=== PATIENT | female | born 1965 | race Caucasian/White ===

== ENCOUNTER 2019-07-13 00:24 | Outpatient (CLI) | payer OTHER, SELFPAY ==
--- NOTE | 2019-07-13 10:59 | DI.MAMMO_ITS ---
SYMPTOMS/DIAGNOSIS: SCREENING, Z12.31, PREVENTATIVE CARE, Z00.00 MAMMOGRAM: Mammograms were interpreted according to the usual protocol including computer analysis with CAD system, tomosynthesis and C view imaging. The breast tissue is homogeneously radiodense which limits the sensitivity of the study. There is no evidence of a dominant mass. There are no suspicious calcifications. SUMMARY: No evidence of malignancy. The patient has had previous mammograms and if the studies can be retrieved, an addendum report will follow. If the previous examinations can not be retrieved, then follow up surveillance of this patient with repeat mammograms in one year is recommended. Category I. Breast density Category C. MQSA ASSESSMENT OF FINDINGS: Negative. Category 1. Patient will receive a letter notifying them of these results. Bi-RADS category C. The breasts are heterogeneously dense, which may obscure small masses.
== END 2019-07-13 00:44 ==
PROVIDERS: PCP Family Medicine; Visit Provider Family Medicine
DX: Z00.00 Encounter for general adult medical examination without abnormal findings (principal); Z12.31 Encounter for screening mammogram for malignant neoplasm of breast
CPT/HCPCS: 77063; 77067

== ENCOUNTER 2019-08-23 09:01 | Day surgery (SDC) | payer OTHER, SELFPAY ==
--- NOTE | 2019-08-23 06:56 | W.COLOREPORT ---
Date of service: 08/23/19 Time of Service: 10:49 Colonoscopy Report Date of procedure: 08/23/19 Pre-op diagnosis general: Colon Cancer Screening Post-op diagnosis procedure note: other (Colorectal polyps and mild diverticulosis) Procedure: Colonoscopy with polypectomy Surgeon: Leidy Pollock Anesthesia proc note operative: other (General/ ASA 2/Karis rust, RAFAEL) Estimated blood loss (mL): 5 Pathology: other (Ascending polyp x1, Sigmoid polyp x2) Complications: None Disposition: same day Indications: Mrs. Slater is a pleasant 54 year old female who was seen in the office for a screening colonoscopy. She has no family history of colon cancer. Risks, benefits and complications have been reviewed. Complications include but are not limited to bleeding, pain, perforation, missed small lesion/polyp, sore throat, aspiration and adverse reaction to the medications. Questions were entertained and answered to their satisfaction and they wished to proceed. No guarantees were given or implied. Prep: Miralax/Dulcolax Procedure Start Time: 10:49 Procedure End Time: 11:29 Retraction Time: 26 minutes Findings: 3 small sessile polyps Mild diverticulosis Procedure Description: After informed consent was obtained the patient was taken to the procedure room and placed in a left decubitous position. Monitors were applied and a time out was done. The patients name, date of , procedure, allergies to medications and metal in their body was reviewed. The patient was then sedated. Once sedated and comfortable a rectal exam was done. External exam was normal. Internal exam revealed a normal sphincter tone and no palpable masses. The scope was then introduced and retro-flexed. No internal hemorrhoids, polyps or masses were identified on retroflexion. The scope was then advanced to the cecum without difficulty. The TI and appendiceal orifice were identified. The prep was adequate. The scope was then slowly retracted over 26 minutes back into the rectum. Polyps were removed with cold forceps in the transverse colon x1 and sigmoid colon x2. The scope was removed and the patient was woken up and taken back to Same day surgery in stable condition. The patient tolerated the procedure well and there were no immediate complications. Follow up: The patient should follow up in 3-5 years unless they develop changes in bowel habits or other new gastrointestinal complaints.
--- NOTE | 2019-08-23 07:01 | W.PM.DSUDISC ---
Discharge Plan Disposition Patient Disposition: HOME Condition: Good Discharge Details Reason For Visit: Colonoscopy Attending Provider: Leidy Pollock Primary Care Provider: Juan Arriola Home Meds and New Rx's Prescriptions: Continued cholecalciferol (vitamin D3) 1,000 UNIT tablet 1,000 unit PO DAILY RF: 0 sumatriptan succinate 50 mg tablet 50 mg PO PRN MDD 100mg Qty: 30 RF: 5 levothyroxine 50 mcg tablet 50 mcg PO DAILY Qty: 90 RF: 4 Discharge Instructions Instructions: Colonoscopy (DC), Diverticulosis (DC), Colorectal Polyps (DC) Additional Instructions: Findings: 3 small polyps Mild diverticulosis Follow up: 3-5 years Please call if you develop: fevers >101.5 Nausea or Vomiting Abdominal pain that is not transient DAY SURGERY UNIT POST ENDOSCOPY INSTRUCTIONS 1. Because there will be medication in your system for the next 24 hours, you may feel a little sleepy. Your coordination will be affected. Therefore: a. Do not drive or operate dangerous equipment for 24 hours. b. Do not drink alcohol beverages for 24 hours (not even beer). c. Plan to go home and rest for the day. 2. Generally there are no restrictions on your activity after a day or so has gone by, but you may feel a bit fatigued for a few days. 3 After you arrive home you may have a light meal and return to a normal diet as you can tolerate it without feeling sick to your stomach. 4. After surgery, you may feel pain or discomfort. This should be only transient, but if it persists please contact your doctor. 5. If there are any questions regarding the findings of your procedure, please feel free to contact your doctor. 6. If you are unable to contact your doctor with a problem, contact the hospital at [phone]. 7. Continue all your regular medications unless directed otherwise. I understand the above instructions and have no questions. Signature of Patient or Responsible Adult Escort Date/Time Name of Responsible Adult Escort Signature of Nurse Date/Time Activity:: Activity as Tolerated Diet:: High Fiber Diet Discharge Orders Discharge Orders: Discharge Order (Routine); Ordered 08/23/19 Ordered By: Leidy Pollock DS: Diagnosis Discharge Diagnosis (1) S/P colonoscopy: Status: Acute (2) Colorectal polyps: Status: Acute (3) Diverticulosis: Status: Acute
[2019-08-23 09:24] VITALS: PULSE 95; RESP 16; TEMP 36.9
[2019-08-23 09:31] VITALS: BP 110/70; PULSE 95; RESP 16; TEMP 36.9; O2SAT 97
[2019-08-23] MEDS: Lactated Ringers 1,000 ML 80 ML IV (09:45)
--- NOTE | 2019-08-23 11:09 | BOWEL_PTH ---
PATIENT: Ana Slater LOC: [facility] U#:[id number] AGE/SX: 54/F ROOM: RE08/23/[address]: Leidy Pollock MD : 1965 BED: DIS: 08/23/2019 SPEC #: [id number] RECD: 08/23/19 12:46 STATUS: ROMULO REQ #: [id number] CHICO: 08/23/19 11:[address]: Leidy Pollock DEPT: Surgical Specimen RECD BY: Martha Aguilar ENTERED: 08/23/19 12:47 SP TYPE: Bowel OTHR DR: Juan Arriola MD Tissues: 1 - BIOPSY BOWEL 2 - BIOPSY BOWEL Procedures: GROSS AND MICRO LEVEL 4 Comments: [id number]
[2019-08-23 12:05] VITALS: BP 103/72; PULSE 71; RESP 16; TEMP 36.8; O2SAT 100
== END 2019-08-23 12:47 | disposition home or self-care (01) ==
LOC: SUR 09:02
PROVIDERS: PCP Family Medicine; Visit Provider Surgery
PROC: 0DJD8ZZ Inspection of Lower Intestinal Tract, Via Natural or Artificial Opening Endoscopic (ICD-10-PCS; CPT 45378; principal; 2019-08-23 10:30)
DX: Z12.11 Encounter for screening for malignant neoplasm of colon (principal); D12.3 Benign neoplasm of transverse colon; D12.5 Benign neoplasm of sigmoid colon; K57.30 Diverticulosis of large intestine without perforation or abscess without bleeding
CPT/HCPCS: 45380; 81025; 88305

== ENCOUNTER 2020-06-09 13:31 | Outpatient (CLI) | payer OTHER, SELFPAY ==
[2020-06-11 04:19] LABS: COVID-19 RT-PCR Result NEGATIVE (Negative)
== END 2020-06-09 13:51 ==
PROVIDERS: PCP Family Medicine; Visit Provider Family Medicine
DX: Z11.59 Encounter for screening for other viral diseases (principal)
CPT/HCPCS: U0003

== ENCOUNTER 2020-07-18 10:08 | Outpatient (REF) | payer OTHER, SELFPAY ==
--- NOTE | 2020-07-18 09:30 | PAPFT_PTH ---
PATIENT: Ana Slater LOC: [facility] U#:[id number] AGE/SX: 55/F ROOM: RE07/18/[address]: Elizabeth Candelario : 1965 BED: DIS: 07/18/2020 SPEC #: [id number] RECD: 07/18/20 12:56 STATUS: ROMULO REQ #: [id number] CHICO: 07/18/20 09:[address]: Elizabeth Candelario DEPT: [facility] Cytology RECD BY: Martha Aguilar ENTERED: 07/18/20 12:56 SP TYPE: PAPFT OTHR DR: Juan Arriola MD Tissues: 1 - CX/ENDOCX FOR PAP SMEARS Procedures: PAP THIN PREP/UVM Screening HPV DNA PROBE Comments: [id number]
== END 2020-07-18 10:28 ==
LOC: LBN 10:08
PROVIDERS: PCP Family Medicine; Visit Provider Obstetrics & Gynecology Gynecology
DX: Z12.4 Encounter for screening for malignant neoplasm of cervix (principal); Z11.51 Encounter for screening for human papillomavirus (HPV)
CPT/HCPCS: 88142; 87624

== ENCOUNTER 2020-08-01 08:44 | Outpatient (CLI) | payer OTHER, SELFPAY ==
--- NOTE | 2020-08-01 08:40 | DI.RAD_ITS ---
EXAM: XR SHOULDER RT COMPLETE 2+V CLINICAL HISTORY: right shoulder pain. TECHNIQUE: 2D digital imaging was performed. COMPARISON: No exams were available for comparison FINDINGS: BONES: No acute fracture is present. No bony destructive lesion is seen. JOINTS: No dislocation present. SOFT TISSUE: Normal. IMPRESSION: No acute abnormality. DATA REPOSITORY: RADIATION DOSE DELIVERED:
== END 2020-08-01 09:04 ==
PROVIDERS: PCP Family Medicine; Referring Provider Family Medicine; Visit Provider Student in an Organized Health Care Education/Training Program
DX: M25.511 Pain in right shoulder (principal)
CPT/HCPCS: 73030

== ENCOUNTER 2020-08-15 07:20 | Outpatient (REF) | payer OTHER, SELFPAY ==
[2020-08-16 23:43] LABS: COVID-19 RT-PCR Result NEGATIVE (Negative)
== END 2020-08-15 07:40 ==
LOC: LBO 07:20
PROVIDERS: PCP Family Medicine; Visit Provider Nurse Practitioner Family
DX: Z11.59 Encounter for screening for other viral diseases (principal)
CPT/HCPCS: U0003

== ENCOUNTER 2020-09-18 00:35 | Outpatient (CLI) | payer OTHER, SELFPAY ==
--- NOTE | 2020-09-18 12:22 | DI.MAMMO_ITS ---
EXAM: MG MAMMO SCREENING CLINICAL HISTORY: screening TECHNIQUE: Mammograms were interpreted according to the usual protocol including computer analysis w [employer] CAD system, tomosynthesis and C-view imaging. COMPARISON: FINDINGS: The breasts are heterogeneously dense. No dominant mass or clumped microcalcification is identified in either breast. The current examination is compared with previous examinations including July 2019 and there has been no gross interval change in appearance in comparison with the prior studies. IMPRESSION: No specific evidence of malignancy at this time. Routine screening examinations are suggested at ye lia intervals in this age group according to the ACS ACR guidelines. BI-RADS Category 1 - Negative Breast Density - Category C - Heterogeneously dense
== END 2020-09-18 00:55 ==
PROVIDERS: PCP Family Medicine; Visit Provider Obstetrics & Gynecology Gynecology
DX: Z12.31 Encounter for screening mammogram for malignant neoplasm of breast (principal)
CPT/HCPCS: 77063; 77067

== ENCOUNTER 2021-06-27 02:33 | Outpatient (CLI) | payer OTHER, SELFPAY ==
[2021-06-27 11:18] LABS: ALT 19 U/L (14-59); AST 13 U/L (15-37); Albumin 4.2 g/dL (3.4-5.0); Alkaline Phosphatase 46 U/L (46-116); Anion Gap 8.8 mmol/L (3-11); BUN 14 mg/dL (7-18); Bilirubin, Total 0.5 mg/dL (0.2-1.0); CO2 28.2 mmol/L (21.0-32.0); CREATININE 0.8 mg/dL (0.55-1.02); Calcium 9.3 mg/dL (8.5-10.1); Calculated LDL 168 mg/dL (<100); Chloride 103 mmol/L (98-107); Cholesterol 232 mg/dL (<200); Glucose 90 mg/dL (74-106); HDL Cholesterol 47 mg/dL (40-60); Potassium 5.4 mmol/L (3.5-5.1); Sodium 140 mmol/L (136-145); TSH (W/Ref FT4) 2.25 uIU/mL (0.36-3.74); Total Protein 7.2 g/dL (6.4-8.2); Triglyceride 86 mg/dL (<150)
== END 2021-06-27 02:34 | disposition home or self-care (01) ==
LOC: LBO 02:33
DX: Z00.00 Encounter for general adult medical examination without abnormal findings (principal); E03.9 Hypothyroidism, unspecified; Z13.220 Encounter for screening for lipoid disorders
CPT/HCPCS: 36415; 80053; 80061; 84443

== ENCOUNTER 2021-08-21 13:12 | Outpatient (CLI) | payer OTHER, SELFPAY ==
--- NOTE | 2021-08-21 13:00 | DI.RAD_ITS ---
Exam(s) XR FINGER RT RING EXAM: XR FINGER RT RING CLINICAL HISTORY: RRF pain. TECHNIQUE: 2D digital imaging was performed. COMPARISON: No exams were available for comparison FINDINGS: There is fracture of the middle phalanx of the 4th finger which extends from the junction of the prox imal mid thirds through to the articular surface of the DIP joint with a small step at this level lesli dent. No radiopaque foreign body. No osseous lesions. IMPRESSION: Mildly displaced fracture of the middle phalanx as described above DATA REPOSITORY: RADIATION DOSE DELIVERED:
== END 2021-08-21 13:13 | disposition home or self-care (01) ==
LOC: DIORS 13:12
PROVIDERS: Visit Provider Physician Assistant
DX: M79.644 Pain in right finger(s) (principal); S62.624A Displaced fracture of middle phalanx of right ring finger, initial encounter for closed fracture
CPT/HCPCS: 73140

== ENCOUNTER 2021-08-31 09:08 | Outpatient (REF) | payer SELFPAY ==
[2021-09-02 00:46] LABS: COVID-19 RT-PCR UVMMC Result Negative (Negative)
== END 2021-08-31 09:09 | disposition home or self-care (01) ==
LOC: LBO 09:08
PROVIDERS: Visit Provider Nurse Practitioner Family
DX: Z20.822 Contact with and (suspected) exposure to COVID-19 (principal)
CPT/HCPCS: U0003

== ENCOUNTER 2021-10-15 14:37 | Outpatient (CLI) | payer OTHER, SELFPAY ==
--- NOTE | 2021-10-15 14:30 | DI.RAD_ITS ---
Exam(s) XR TOE LT THIRD EXAM: XR TOE LT THIRD CLINICAL HISTORY: eval L 3rd toe cyst, DIP pain. TECHNIQUE: 2D digital imaging was performed. COMPARISON: No exams were available for comparison FINDINGS: There is a healed oblique fracture at the neck of the 5th metatarsal incidentally noted. Respect of the 3rd toe, soft tissue density in the dorsal aspect, most probably corresponding to the clinical finding. This does not exhibit calcifications therein there is no obvious abnormality of th e subjacent osseous phalanges. IMPRESSION: DATA REPOSITORY: RADIATION DOSE DELIVERED:
== END 2021-10-15 14:38 | disposition home or self-care (01) ==
LOC: DIORS 14:38
PROVIDERS: Visit Provider Student in an Organized Health Care Education/Training Program
DX: M25.572 Pain in left ankle and joints of left foot (principal); M79.89 Other specified soft tissue disorders
CPT/HCPCS: 73660

== ENCOUNTER 2021-10-17 14:52 | Outpatient (CLI) | payer OTHER, SELFPAY ==
--- NOTE | 2021-10-17 14:15 | DI.RAD_ITS ---
Exam(s) XR FINGER RT RING EXAM: XR FINGER RT RING CLINICAL HISTORY: right ring finger fx f/u. TECHNIQUE: 2D digital imaging was performed of the right finger. Two views were obtained. PA/AP an d lateral views were obtained. COMPARISON: CR XR FINGER RT RING from 08/21/2021 FINDINGS: BONES: There has been no change in alignment of the fracture involving the middle phalanx. No bony d estructive lesion is seen. JOINTS: No dislocation present. SOFT TISSUE: Normal. IMPRESSION: Stable middle phalangeal fracture. DATA REPOSITORY: RADIATION DOSE DELIVERED:
== END 2021-10-17 14:53 | disposition home or self-care (01) ==
LOC: DIORS 14:53
PROVIDERS: Visit Provider Student in an Organized Health Care Education/Training Program
DX: S62.624D Displaced fracture of middle phalanx of right ring finger, subsequent encounter for fracture with routine healing (principal)
CPT/HCPCS: 73140

== ENCOUNTER 2021-10-22 03:36 | Outpatient (CLI) | payer OTHER, SELFPAY ==
[2021-10-22 10:14] LABS: Source Nasal/Nares
[2021-10-22 12:30] LABS: COVID-19 PCR Negative (Negative)
== END 2021-10-22 03:37 | disposition home or self-care (01) ==
LOC: LBO 03:42
PROVIDERS: Visit Provider Student in an Organized Health Care Education/Training Program
DX: Z20.822 Contact with and (suspected) exposure to COVID-19 (principal); Z01.818 Encounter for other preprocedural examination
CPT/HCPCS: 87635

== ENCOUNTER 2021-10-23 09:14 | Day surgery (SDC) | payer OTHER, SELFPAY ==
[2021-10-23 09:34] VITALS: BP 123/86; PULSE 100; RESP 18; TEMP 36.6; O2SAT 97
[2021-10-23] MEDS: Sodium Bicarbonate 50 MEQ/50 ML VIAL (11:09)
[2021-10-23] MEDS: Bupivacaine 0.25% Pres-Free 30 ML VIAL (11:21)
--- NOTE | 2021-10-23 11:33 | W.PM.DSUDISC ---
Discharge Plan Disposition Patient Disposition: HOME Condition: Good Discharge Details Reason For Visit: Excision cyst L foot Attending Provider: Zuhair Vallecillo Primary Care Provider: Estefani Song Home Meds and New Rx's Prescriptions: New acetaminophen 500 mg tablet 1,000 mg PO TID Qty: 90 RF: 0 ibuprofen 600 mg tablet 600 mg PO TID PRN (Reason: pain) Qty: 90 RF: 0 Continued sumatriptan succinate 50 mg tablet 50 mg PO PRN MDD 100mg Qty: 30 RF: 5 escitalopram oxalate [Lexapro] 10 mg tablet 10 mg PO DAILY Qty: 90 RF: 3 levothyroxine 50 mcg tablet 50 mcg PO DAILY Qty: 90 RF: 4 cholecalciferol (vitamin D3) 1,000 UNIT tablet 1,000 unit PO DAILY RF: 0 Discontinued acetaminophen [Tylenol Ex Str Arthritis Pain] 500 mg Tablet 1,000 mg PO Q6H PRNRF: 0 Discharge Instructions Additional Instructions: Foot Cyst Removal Discharge Instructions Activity: You may weight bear as tolerated. You should keep the leg elevated as much as possible. You may move your hip and knee. You should wear the post op sandal when you are up and mobilizing, but may remove it when not and move your ankle as tolerated. Dressings: You should keep the initial dressing on for at least 2 days. After 3 days, you may remove it and get it wet in the shower. You may keep it covered with a band-aid after that. Medications: - You should take Tylenol and Ibuprofen around the clock for pain. Follow-up: 2 weeks Referrals: Zuhair Vallecillo MD [ [facility] STAFF PHYSICIAN] - Equipment/Supplies: Splint Activity:: Activity as Tolerated Remove Dressings/Wound Care:: 48 hours Shower/Bathe:: 48 hours Diet:: As Tolerated Discharge Orders Discharge Orders: Discharge Order (Routine); Ordered 10/23/21 Ordered By: Adrian Barbour DS: Diagnosis Discharge Diagnosis (1) Digital mucous cyst of toe of left foot: Status: Acute
[2021-10-23 11:35] VITALS: BP 115/57; PULSE 73; RESP 18; TEMP 36.8; O2SAT 98
--- NOTE | 2021-10-24 06:18 | W.PM.OP ---
Date of service: 10/23/21 Time of Service: 12:19 Operative Note Operative Note DATE OF PROCEDURE: 10/23/21 PRE-OP DIAGNOSIS: Digital Mucous Cyst, Left 3rd Toe POST-OP DIAGNOSIS: same PROCEDURE: Excision of digital mucoid cyst, left third toe SURGEON: Zuhair Vallecillo ANESTHESIA TYPE: Local By Surgeon Refer to Anesthesia Record ESTIMATED BLOOD LOSS: 0 PATHOLOGY: none sent COMPLICATIONS: None Patient was transported to: same day Patient's condition: stable Indications: Ana is a 56-year-old active female who has had some pain and a notable cyst about the left third toe. She does have some early arthritis seen within the DIP joint of the toe but my suspicion is that her pain was coming mostly from the cyst itself and its ongoing process. Therefore, I offered cyst excision. I discussed the risk of the procedure to include bleeding, infection, pain, stiffness, damage to nerves and vessels, worsening arthritis, recurrence. Despite these risk, she elects to proceed. Findings: There was a mucoid cyst arising from the lateral aspect of the DIP joint which had cystic structure both underneath the dermis and on top of the dermis. This was excised and the joint was open and small bone spurs of the area were resected. Procedure Description: Ana is greeted in the preoperative holding area. Her identity was confirmed the correct site was identified and marked. The consent was reviewed the patient and signed. History physical was updated. She was transferred back to the operating room and kept in a supine position. All bony prominences well-padded and the left foot was then prepped with ChloraPrep and draped in a standard fashion. A digital block was then performed using 1% lidocaine with epinephrine buffered with sodium bicarbonate. A timeout was performed for safe surgery. After ensuring that the block is set up fully I then performed a longitudinal incision over the dorsal lateral aspect of the toe. The cyst was very prominent and it was actually sitting on top of the dermis and stretching the epidermis on top of it. The cyst was deflated and I was able to resect this thinned out epidermis exposing the deeper dermis. Incision was carried down deep through the additional layers down to the bony surface of the toe. The cystic material was seen tracking towards the DIP joint. This was excised with a rongeur. The dorsal lateral aspect of the DIP joint was opened and a [place] was able to be placed inside the joint. I then used a rongeur to remove any excess bone spurs in this area any extra soft tissue. The wound was then irrigated. There is no remaining cystic structure. I did remove some extra dermis from the cyst area to improve cosmesis with closure. The wounds then closed with multiple 4-0 nylon sutures. The wound was dressed with Xeroform, 4 x 4's, conformer wrap. At the end the case all counts are correct. She tolerated it well was transferred back to the day surgery area in a stable condition.
== END 2021-10-23 11:55 | disposition home or self-care (01) ==
PROVIDERS: Visit Provider Student in an Organized Health Care Education/Training Program
PROC: (CPT 28090; principal; 2021-10-23 11:15)
DX: M25.872 Other specified joint disorders, left ankle and foot (principal)
CPT/HCPCS: 28090

== ENCOUNTER 2022-08-27 08:30 | Outpatient (CLI) | payer OTHER, SELFPAY ==
[2022-08-27 07:32] LABS: Hemoglobin A1C 5.6 % (<5.7)
[2022-08-27 08:06] LABS: Anion Gap 4.3 mmol/L (3-11); BUN 20 mg/dL (7-18); CO2 30.7 mmol/L (21.0-32.0); CREATININE 0.8 mg/dL (0.55-1.02); Calcium 8.5 mg/dL (8.5-10.1); Calculated LDL 118 mg/dL (<100); Chloride 102 mmol/L (98-107); Cholesterol 199 mg/dL (<200); Estimated GFR 86.42 (mL/min/1.73m2); Glucose 103 mg/dL (74-106); HDL Cholesterol 65 mg/dL (40-60); Sodium 137 mmol/L (136-145); Triglyceride 81 mg/dL (<150)
[2022-08-27 08:40] LABS: FREE T4 0.74 ng/dL (0.76-1.46)
== END 2022-08-27 08:31 | disposition home or self-care (01) ==
LOC: LBO 09:15
PROVIDERS: Visit Provider Nurse Practitioner Family
DX: E03.9 Hypothyroidism, unspecified (principal); E78.5 Hyperlipidemia, unspecified; R79.89 Other specified abnormal findings of blood chemistry
CPT/HCPCS: 36415; 80048; 80061; 83036; 84439; 84443

== ENCOUNTER 2022-11-20 01:52 | Outpatient (CLI) | payer OTHER, SELFPAY ==
--- NOTE | 2022-11-20 08:03 | DI.MAMMO_ITS ---
Exam(s) MAMMO SCREENING EXAM: MAMMO SCREENING CLINICAL HISTORY: screening,z12.39 TECHNIQUE: Mammograms were interpreted according to the usual protocol including computer analysis w [employer]Jane CAD system, tomosynthesis and C-view imaging. COMPARISON: 2014 through 2019 FINDINGS: The breasts are composed of heterogeneously dense fibroglandular densities, Breast Density category C . No suspicious masses or suspicious microcalcifications are seen. No skin thickening or abnormal axillary lymph nodes are seen. There has been no significant change from prior exams. IMPRESSION: BI-RADS Category 1, Negative mammogram. Yearly screening mammography is recommended. Breast Density Category C, heterogeneously Dense. The mammogram demonstrates the patient's breast tissue is dense. Dense breast tissue is very common a nd is not abnormal but dense breast tissue can make it harder to find cancer on a mammogram. Also, de nse breast tissue may increase breast cancer risk. This information about the result of the mammogram report was provided to the patient to raise their awareness. Use this report when you speak with the patient about their risks for breast cancer, which includes their family history. At that time, you may recommend additional screening tests (Ultrasound or MRI) as they might be useful based on their r isk. A negative radiographic report should not delay biopsy if a dominant or clinically suspicious mass is present. Up to ten percent of cancers are not identified on mammography. A negative report may reinforce clinical impression. Adenosis and dense breasts may obscure an underlying neoplasm. False positive reports average 6 to 10%.
== END 2022-11-20 02:12 ==
LOC: DI 01:52
PROVIDERS: PCP Nurse Practitioner Family; Visit Provider Nurse Practitioner Family
DX: Z12.31 Encounter for screening mammogram for malignant neoplasm of breast (principal); R92.8 Other abnormal and inconclusive findings on diagnostic imaging of breast
CPT/HCPCS: 77063; 77067

== ENCOUNTER 2023-01-01 02:33 | Outpatient (CLI) | payer OTHER, SELFPAY ==
[2023-01-01 12:24] LABS: FREE T4 0.82 ng/dL (0.76-1.46); TSH 2.32 uIU/mL (0.36-3.74)
== END 2023-01-01 02:34 | disposition home or self-care (01) ==
PROVIDERS: PCP Nurse Practitioner Family; Visit Provider Nurse Practitioner Family
DX: E03.9 Hypothyroidism, unspecified (principal)
CPT/HCPCS: 36415; 84439; 84443

== ENCOUNTER 2023-08-20 08:03 | Outpatient (REF) | payer OTHER, SELFPAY ==
[2023-08-20 13:14] LABS: ALT 27 U/L (14-59); AST 17 U/L (15-37); Albumin 3.9 g/dL (3.4-5.0); Alkaline Phosphatase 61 U/L (46-116); Anion Gap 8.2 mmol/L (3-11); BUN 14 mg/dL (7-18); Bilirubin, Total 0.5 mg/dL (0.2-1.0); CO2 27.8 mmol/L (21.0-32.0); CREATININE 0.8 mg/dL (0.55-1.02); Calcium 9.5 mg/dL (8.5-10.1); Calculated LDL 156 mg/dL (<100); Chloride 102 mmol/L (98-107); Cholesterol 242 mg/dL (<200); Estimated GFR 85.89 (mL/min/1.73m2); Glucose 100 mg/dL (74-106); HDL Cholesterol 70 mg/dL (40-60); Potassium 4.2 mmol/L (3.5-5.1); Sodium 138 mmol/L (136-145); TSH (W/Ref FT4) 4.35 uIU/mL (0.36-3.74); Total Protein 7.1 g/dL (6.4-8.2); Triglyceride 81 mg/dL (<150)
[2023-08-20 13:34] LABS: FREE T4 0.87 ng/dL (0.76-1.46)
== END 2023-08-20 08:04 | disposition home or self-care (01) ==
LOC: LBN 08:03
PROVIDERS: PCP Nurse Practitioner Family; Visit Provider Nurse Practitioner Family
DX: Z13.220 Encounter for screening for lipoid disorders (principal); E03.9 Hypothyroidism, unspecified
CPT/HCPCS: 80053; 80061; 84439; 84443

== ENCOUNTER 2023-11-17 12:30 | Outpatient (REF) | payer OTHER, SELFPAY ==
[2023-11-18 08:32] LABS: COVID-19 PCR Negative (Negative); Influenza A PCR Negative (Negative); Influenza B PCR Negative (Negative); RSV PCR Negative (Negative)
[2023-11-18 08:33] LABS: Source Nasopharynx
== END 2023-11-17 12:31 | disposition home or self-care (01) ==
LOC: LBN 12:30
PROVIDERS: PCP Nurse Practitioner Family; Referring Provider Nurse Practitioner; Visit Provider Nurse Practitioner
DX: R09.89 Other specified symptoms and signs involving the circulatory and respiratory systems (principal)
CPT/HCPCS: 87637

== ENCOUNTER → 2024-01-05 02:58 | Outpatient (CLI) | payer OTHER, SELFPAY ==
--- NOTE | 2024-01-05 07:30 | DI.MAMMO_ITS ---
Exam(s) MAMMO SCREENING EXAM: MAMMO SCREENING CLINICAL HISTORY: screening,z12.39. TECHNIQUE: Bilateral full field digital CC and MLO mammographic images were obtained with 3D tomosyn thesis and utilizing computer aided detection (CAD). COMPARISON: Prior mammograms were reviewed. FINDINGS: There has been no significant change in the appearance and distribution of the fibroglandular tissue. No new left breast findings. Asymmetric density in the right breast 7 cm in from the nipple on the CC view and also evident on the MLO view is unchanged from prior mammograms. There are no new spiculated masses nor new malignant appearing microcalcification groups. There is no significant architectural distortion nor skin thickening-retraction. IMPRESSION: Stable benign findings. No radiographic evidence of malignancy. BI-RADS Category 2 - Benign Findings Breast Density - Category C - Heterogeneously dense Breast density Category C or D implies that the patient has dense breast tissue. Dense breast tissue can make it harder to find cancer on a mammogram. Dense breast tissue is also associated with an incr eased risk of breast cancer. This information about the result of the mammogram report was provided to the patient to raise their awareness. Use this report when you speak with the patient about their risks for breast cancer, which includes their family history. At that time, you may recommend additional screening tests (Ultrasoun d or MRI) as these tests may add significant information. A negative radiographic report should not delay biopsy if a dominant or clinically suspicious mass is present. Up to ten percent of cancers are not identified on mammography. A negative report may reinforce clinical impression. Adenosis and dense breasts may obscure an underlying neoplasm. False positive reports average 6 to 10%. Patient will receive a letter notifying them of these results.
== END ==
PROVIDERS: PCP Nurse Practitioner Family; Visit Provider Nurse Practitioner Family
DX: Z12.31 Encounter for screening mammogram for malignant neoplasm of breast (principal)
CPT/HCPCS: 77063; 77067

== ENCOUNTER 2024-08-18 20:04 | Outpatient (REF) | payer OTHER, SELFPAY ==
[2024-08-18 18:07] LABS: Iron 88 ug/dL (50-170); Total Iron Binding Capacity 334 ug/dL (250-450)
[2024-08-18 18:32] LABS: Calculated LDL 159 mg/dL (<100); Cholesterol 247 mg/dL (<200); Ferritin 51 ng/mL (8-252); HDL Cholesterol 56 mg/dL (40-60); TSH (W/Ref FT4) 3.14 uIU/mL (0.36-3.74); Triglyceride 161 mg/dL (<150); Vitamin D 25 Total 45.7 ng/mL (30-100)
== END 2024-08-18 20:05 | disposition home or self-care (01) ==
LOC: LBN 20:04
PROVIDERS: PCP Nurse Practitioner Family; Visit Provider Nurse Practitioner Family
DX: F32.9 Major depressive disorder, single episode, unspecified (principal); Z13.220 Encounter for screening for lipoid disorders; E03.9 Hypothyroidism, unspecified; E55.9 Vitamin D deficiency, unspecified
CPT/HCPCS: 80061; 82306; 82728; 83540; 83550; 84443

== ENCOUNTER 2024-09-06 15:37 | Outpatient (CLI) | payer OTHER, SELFPAY ==
--- NOTE | 2024-09-06 15:13 | DI.RAD_ITS ---
Exam(s) XR THUMB RT EXAM: XR THUMB RT CLINICAL HISTORY: mass of volar-ulnar thumb. TECHNIQUE: 2D digital imaging was performed. Three views. COMPARISON: CR XR FINGER RT RING from 10/17/2021 FINDINGS: BONES: No acute fracture is present. No bony destructive lesion is seen. JOINTS: No dislocation present. SOFT TISSUE: Normal. No visible mass IMPRESSION: No visible mass or bony destruction. DATA REPOSITORY: RADIATION DOSE DELIVERED:
== END 2024-09-06 15:38 | disposition home or self-care (01) ==
LOC: DIORS 15:37
PROVIDERS: PCP Nurse Practitioner Family; Visit Provider Student in an Organized Health Care Education/Training Program
DX: R22.31 Localized swelling, mass and lump, right upper limb (principal)
CPT/HCPCS: 73140

== ENCOUNTER 2024-10-06 12:12 | Day surgery (SDC) | payer OTHER, SELFPAY ==
--- NOTE | 2024-10-06 11:52 | W.PM.DSUDISC ---
Date of service: 10/06/24 Discharge Plan Disposition Patient Disposition: Home Condition: Good Discharge Details Reason For Visit: Excision cyst R thumb Attending Provider: Zuhair Vallecillo Primary Care Provider: Cj Olivares Home Meds and New Rx's Prescriptions: New acetaminophen 500 mg tablet 1,000 mg PO TID Qty: 90 0RF ibuprofen 600 mg tablet 600 mg PO TID PRN (Reason: pain) Qty: 90 0RF Continued escitalopram oxalate [Lexapro] 10 mg tablet 10 mg PO DAILY Qty: 90 3RF [place] 45 mg tablet 45 mg PO DAILY Qty: 60 6RF cholecalciferol (vitamin D3) 1,000 UNIT tablet 1,000 unit PO DAILY loratadine [Claritin] 10 mg Tablet 10 mg PO DAILY PRN tretinoin 0.025 % cream 1 applic topical QHS Qty: 20 0RF clindamycin-tretinoin 1.2-0.025 % gel 1 applic TP QHS Qty: 60 5RF sumatriptan succinate 50 mg tablet 50 mg PO PRN MDD 100mg Qty: 30 5RF Patient Comments: pt. reports she took 2 50mg tablets on friday levothyroxine 75 mcg tablet 75 mcg PO DAILY Qty: 90 4RF Discontinued acetaminophen 500 mg tablet 1,000 mg PO TID Qty: 90 0RF ibuprofen 600 mg tablet 600 mg PO TID PRN (Reason: pain) Qty: 90 0RF Discharge Instructions Additional Instructions: Cyst Excision Discharge Instructions Activity: You may use the other fingers as tolerated but avoid trying to do too much too soon. You may resume light activities with the finger when the dressing is removed Dressing/Cast: You may take the dressing down in [address] a Band-Aid over the wound if desired. You may get the incision wet after 48 hours. Medications: - You should take Tylenol and Ibuprofen for pain control. - You may apply ice over the thumb. Follow-up: 7-10 days Referrals: Zuhair Vallecillo MD [ [facility] STAFF PHYSICIAN] - Activity:: Activity as Tolerated Remove Dressings/Wound Care:: 48 hours Shower/Bathe:: 48 hours Diet:: As Tolerated Discharge Orders Discharge Orders: Discharge Order (Routine); Ordered 10/06/24 Ordered By: Adrian Barbour DS: Diagnosis Discharge Diagnosis (1) Subcutaneous mass of right thumb: Status: Acute
[2024-10-06 12:30] VITALS: BP 98/76; PULSE 96; RESP 16; TEMP 36.6; O2SAT 99
[2024-10-06] MEDS: Sodium Bicarbonate 50 MEQ/50 ML VIAL (13:21)
[2024-10-06] MEDS: Lidocaine 1% Pres-Free W/EPI 1/200,000 10 ML VIAL (13:21)
--- NOTE | 2024-10-06 13:27 | SKI_PTH ---
PATIENT: Ana Slatre LOC: [facility] U#:[id number] AGE/SX: 59/F ROOM: RE10/06/[address]: Zuhair Vallecillo MD : 1965 BED: DIS: 10/06/2024 SPEC #: [id number] RECD: 10/06/24 17:34 STATUS: ROMULO REQ #: [id number] CHICO: 10/06/24 13:[address]: Zuhair Vallecillo DEPT: Surgical Specimen RECD BY: Martah Aguilar ENTERED: 10/06/24 17:35 SP TYPE: SKI OTHR DR: Cj Lemos DNP Tissues: 1 - SKIN BIOPSY(SHAVE/PUNCH) Procedures: GROSS AND MICRO LEVEL 4 Comments: [id number]
[2024-10-06 13:43] VITALS: BP 97/63; PULSE 74; RESP 16; TEMP 36.5; O2SAT 97
--- NOTE | 2024-10-06 14:53 | ROE_ITS ---
Operative Note Operative Note PRE-OP DIAGNOSIS: Right thumb mass POST-OP DIAGNOSIS: same PROCEDURE: Excisional biopsy of mass from right thumb SURGEON: Zuhair Vallecillo ANESTHESIA TYPE: Local By Surgeon Refer to Anesthesia Record ESTIMATED BLOOD LOSS: 5 PATHOLOGY: other (Mass from palmar aspect of right thumb sent to pathology in formalin) COMPLICATIONS: None Patient was transported to: same day Patient's condition: stable Indications: I have seen Ana in clinic for symptoms of a right thumb mass. The mass persisted and caused pain to direct contact and with use. Given the persistence of the mass as well as the pain and because with activity, I offered excisional biopsy. It was unclear the exact etiology of the mass and this would be sent to pathology. I reviewed the risks of the procedure to include, but not limited to, bleeding, infection, pain, stiffness, recurrence, damage to nerves or vessels. Despite these risks, the patient elected to proceed. Findings: There is a mass about the palmar aspect of the thumb, overlying the distal aspect of the proximal phalanx. This had a cystic capsule to it but it was not a ganglion cyst and seen to resent some type of epidermoid cyst which had been deflated versus a fairly homogenous giant cell tumor. Either way, this was sent to pathology for evaluation. Procedure Description: Ana was greeted in the preoperative holding area where the correct side was identified and marked. The consent was reviewed with the patient and signed. All questions were answered. She was taken back to the operating room. The patient was placed into the supine position on the operating room table with the right arm on an arm board. All bony prominences were well padded. No prophylactic antibiotics were administered since this was a clean, elective hand surgical case. The right arm was then prepped with Chloraprep and draped in a standard fashion with stockin ette and extremity drape. A timeout to confirm correct identity, side and site, procedure, allergies, anesthesia, and medical concerns was performed. A digital block was then performed using 1% lidocaine with epinephrine and buffered with sodium bicarbonate. This was allowed time to set up completely and was tested before proceeding with the case. A oblique incision was then made overlying the mass. The skin was incised sharply. There was some inflammatory tissue seen immediately beneath the skin. This was made out the way and a cyst capsule was evaluated. This capsule seem to be slightly irregular in shape but was easily to be identified from surrounding tissues. There was inflammatory tissue surrounding it with some bleeding. When the mass was further encountered it was able to be expressed from the wound and then released from surrounding tissues. There is seem to be some adjacent capsular tissue or inflamed tissue deep to it. 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 This was sent to pathology. The wound was inspected and any remnant tissue in this area was removed. The thumb was irrigated and once again checked to make sure that all components were removed. The skin was then closed using a #4-0 nylon in interrupted fashion. The finger was dressed with Xeroform, 4 x 4, conform dressing. The patient tolerated the procedure well and was returned to the Same Day Surgery area in a stable condition suffering no known complication. Date of Procedure: 10/06/24
== END 2024-10-06 13:53 | disposition home or self-care (01) ==
LOC: SUR 12:12
PROVIDERS: PCP Nurse Practitioner Family; Visit Provider Student in an Organized Health Care Education/Training Program
PROC: (CPT 26115; principal; 2024-10-06 14:45)
DX: M67.441 Ganglion, right hand (principal); F32.9 Major depressive disorder, single episode, unspecified; E03.9 Hypothyroidism, unspecified; E55.9 Vitamin D deficiency, unspecified; E78.5 Hyperlipidemia, unspecified
CPT/HCPCS: 26115; 88305; J2004

== ENCOUNTER 2024-10-06 15:36 | Outpatient (REF) | payer OTHER, SELFPAY ==
[2024-10-06 15:55] LABS: ALT 25 U/L (14-59); AST 15 U/L (15-37); Albumin 3.9 g/dL (3.4-5.0); Alkaline Phosphatase 68 U/L (46-116); Bilirubin, Direct 0.1 mg/dL (0.0-0.2); Bilirubin, Total 0.44 mg/dL (0.2-1.0); Total Protein 6.7 g/dL (6.4-8.2)
== END 2024-10-06 15:37 | disposition home or self-care (01) ==
LOC: LBN 15:36
PROVIDERS: PCP Nurse Practitioner Family; Visit Provider Obstetrics & Gynecology Gynecology
DX: N95.1 Menopausal and female climacteric states (principal)
CPT/HCPCS: 80076

== ENCOUNTER 2024-12-20 06:23 | Day surgery (SDC) | payer OTHER, SELFPAY ==
--- NOTE | 2024-12-19 06:29 | PDOC.DSDIS_ITS ---
Date of service: 12/20/24 Discharge Plan Disposition Patient Disposition: Home Condition: Good Discharge Details Reason For Visit: screening colonoscopy Attending Provider: John Purcell Primary Care Provider: Cj Olivares Home Meds and New Rx's Prescriptions: Continued escitalopram oxalate [Lexapro] 10 mg tablet 10 mg PO DAILY Qty: 90 3RF atomoxetine 10 mg capsule 20 mg PO DAILY Veozah 45 mg tablet 45 mg PO DAILY Qty: 60 6RF cholecalciferol (vitamin D3) 1,000 UNIT tablet 1,000 unit PO DAILY loratadine [Claritin] 10 mg Tablet 10 mg PO DAILY PRN clindamycin-tretinoin 1.2-0.025 % gel 1 applic TP QHS Qty: 60 5RF sumatriptan succinate 50 mg tablet 50 mg PO PRN MDD 100mg Qty: 30 5RF levothyroxine 75 mcg tablet 75 mcg PO DAILY Qty: 90 4RF tretinoin 0.025 % cream 1 applic topical QHS Qty: 20 0RF acetaminophen 500 mg tablet 1,000 mg PO TID Qty: 90 0RF ibuprofen 600 mg tablet 600 mg PO TID PRN (Reason: pain) Qty: 90 0RF lisdexamfetamine [Vyvanse] 60 mg capsule No Action Magnesium (oxide/AA chelate) 400 mg [employer] 60 mg lozenge 60 mg PO DAILY Discharge Instructions Instructions: Colon polyps Additional Instructions: Ana, was great seeing you today, and I hope you are comfortable throughout the procedure. Everything went very smoothly. Your prep was outstanding and I could see everything fine. I did find and remove a single polyp in the upper part of the rectum today. It is small in size, none of the features are particularly worrisome to the naked eye. This will be sent to the pathologist, and it usually takes about a week or 2 to get the results of the polyp analysis, but once I have that information, we will be in touch with recommendations for the timing of your next colonoscopy. If you need anything or have any questions in the meantime, please do not hesitate to call. 1. If tolerated, consume a soft, low fiber diet for 1-2 days. 2[address] Do not drive, drink alcohol, operate machinery, make critical decisions, or do activities that require coordination or balance for 24 hours. 3. Because air was put into your colon during the procedure, expelling air from your rectum (passing gas or farting) is normal. 4. You may not have a bowel movement for 1-3 days because of the colonoscopy prep. This is normal. 5. Go directly to the emergency room if you notice any of the following: Develop chills (warm to touch), or if you have a thermometer and your temperature is above 101 Difficulty breathing or difficultly swallowing Persistent vomiting Severe abdominal pain, other than gas cramps Severe chest pain Black, tarry stools Any bleeding ? exceeding one tablespoon 6. Call your physician if the site where your intravenous was started becomes red, swollen, painful, and warm to touch. 7. Your physician has reviewed your pre-procedure medications. Please continue to take those medications as previously ordered. You will be given specific information/education regarding any changes to your medications before leaving. Activity:: Activity as Tolerated Diet:: As Tolerated Discharge Orders Discharge Orders: Discharge Order (Routine); Ordered 12/19/24 Ordered By: John Purcell DS: Diagnosis Discharge Diagnosis (1) Encounter for screening colonoscopy: Status: Acute Asessment and Plan: Follow-up on polypectomy results
--- NOTE | 2024-12-19 06:30 | COLE_ITS ---
Date of service: 12/20/24 Time of Service: 08:07 Colonoscopy Report Date of procedure: 12/20/24 Pre-op diagnosis general: screening colonoscopy Post-op diagnosis procedure note: other (Rectal polyp) Procedure: colonoscopy with polypectomy Surgeon: John Purcell Anesthesia Type: General:No Airway Estimated blood loss (mL): 5 Pathology: other (0.25 cm pedunculated rectal) Complications: None Disposition: same day Indications: Ana is a 59 year old woman who needs a screening colonoscopy Prep: Miralax/Dulcolax Procedure Start Time: 07:37 Procedure End Time: 08:00 Retraction Time: 9 Findings: 0.25 cm pedunculated rectal polyp Procedure Description: After the induction of anesthesia, and with Ana in left lateral decubitus position, I began by performing an external anorectal exam.? Perineum and skin were normal, as was the anal verge.? There was no evidence of external hemorrhoids.? Next, I performed a digital rectal exam.? I did not appreciate any abnormal findings.? Next, I advanced a colonoscope into the rectal vault.? I performed retroflexion.? This appeared normal.? Using insufflation, I then advanced the colonoscope beyond the rectal folds and into the sigmoid colon before advancing towards the cecum.? The quality of the prep was outstanding.? The scope was noted to be in the cecum by identification of the ileocecal valve and appendiceal orifice.? I then began withdrawing the colonoscope using repeated irrigation as necessary for full evaluation of the colonic mucosa. ?Once the scope was withdrawn to the level of the rectum, great care was taken to examine portions of the rectal folds.? In the upper portion of the rectal vault was a 0.25 cm pedunculated rectal polyp. This was removed with cold forcep polypectomy without any issues. Finally, the scope was withdrawn and the patient was brought to the same-day surgery recovery unit as the anesthetic wore off. ?The findings and instructions were shared with the patient prior to discharge. [place] Bowel Prep [place] Bowel Prep Right Colon: 3 Left Colon: 3 Transverse Colon: 3 Total Score: 9
[2024-12-20 06:37] VITALS: BP 110/84; PULSE 85; RESP 16; TEMP 36.3; O2SAT 97
[2024-12-20] MEDS: Lactated Ringers 1,000 ML 80 ML IV (07:00)
--- NOTE | 2024-12-20 07:16 | W.ANESPRE ---
General Info Date of Service Date Performed: 12/20/24 Height: 5 ft 5.75 in Weight: 66.6 kg Body Mass Index (BMI): 23.8 Surgical Procedure: Operation Date: 12/20/24 07:35 Proposed Procedure Side Surgeon sherwin Purcell MD Meds Allergies and Home Medications Allergies Allergy/AdvReac Type Severity Reaction Status Date / Time Penicillins Allergy Severe Other (See Unverified 12/14/24 14:52 Comment) Home Medication ?Medication ?Instructions ?Recorded cholecalciferol (vitamin D3) 25 1,000 unit PO DAILY 03/04/18 mcg (1,000 unit) tablet escitalopram oxalate 10 mg tablet 10 mg PO DAILY #90 tabs 06/25/21 (Lexapro) loratadine 10 mg tablet (Claritin) 10 mg PO DAILY PRN 09/23/22 clindamycin-tretinoin 1.2 %-0.025 1 applic topical QHS #60 grams 02/23/24 % topical gel sumatriptan succinate 50 mg tablet 50 mg PO PRN #30 tabs 06/23/24 levothyroxine 75 mcg tablet 75 mcg PO DAILY #90 tabs 08/30/24 acetaminophen 500 mg tablet 1,000 mg (2 x 500 mg) PO TID #90 10/06/24 tabs fezolinetant 45 mg tablet (Veozah) 45 mg PO DAILY #60 tabs 10/06/24 ibuprofen 600 mg tablet 600 mg PO TID PRN pain #90 tabs 10/06/24 lisdexamfetamine 60 mg capsule mg 10/06/24 (Vyvanse) tretinoin 0.025 % topical cream 1 applic topical QHS #20 grams 10/25/24 atomoxetine 10 mg capsule 20 mg PO DAILY 12/14/24 Magnesium (oxide/AA chelate) 12/20/24 ascorbic acid (vitamin C) 60 mg 60 mg PO DAILY 12/20/24 lozenges ([employer]) Current Visit Medications: Current Medications Generic Name Dose Route Start Last Admin Trade Name Freq PRN Reason Stop Dose Admin Ringer's Solution 1,000 mls @ 80 mls/hr 12/20/24 06:00 12/20/24 07:00 IV 12/20/24 23:59 80 mls/hr INFUSION AKIRA Administration IV Miscellaneous Supplies 1 each 12/20/24 06:00 Iv Access IV 12/20/24 23:59 DIRECTED AKIRA Sodium Chloride 0 ml 12/20/24 06:00 Normal Saline Flush 10 Ml Syr IV 12/20/24 23:59 PRN PRN Sodium Chloride 0 ml 12/20/24 06:00 Normal Saline 10 Ml Vial IJ 12/20/24 23:59 DIRECTED PRN Sterile Water 0 ml 12/20/24 06:00 Water,Injection,Sterile 10 Ml Vial IJ 12/20/24 23:59 DIRECTED PRN PFSH Active Problems Active Problems: Problem Status Onset Code Encounter for screening colonoscopy Acute Z12.11 Vasomotor symptoms due to menopause Acute N95.1 Mucous cyst of digit of left hand Acute M67.442 Subcutaneous mass of right thumb Acute R22.31 Finger mass, left Acute R22.32 Screening for hyperlipidemia Acute Z13.220 Migraine headache Chronic G43.909 Tubular adenoma of colon Acute D12.6 Diverticulosis of colon Chronic K57.30 Major depressive disorder Chronic F32.9 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 History of hand surgery L hand Tobacco Smoking/Tobacco Use Status: Never Passive smoking exposure: Yes Second hand exposure: Yes Alcohol Alcohol Intake: current Alcohol intake frequency: a few times a month Alcohol type: beer Substance Use Substance use: Never Substance use type: does not use Details: alcohol: t-4 Prental History History 1 Para Hx # Term Pregnancies 1 Multiple births Hx # Pregnancies Ectopic pregnancies AB induced Hx Number of Living Children 1 AB spontaneous Vital Signs and Lab Results Vital Signs Most Recent Vital Signs in EMR: Most Recent Vital Signs Temp Pulse Resp BP Pulse Ox 36.3 C L 85 16 110/84 97 12/20/24 06:37 12/20/24 06:37 12/20/24 06:37 12/20/24 06:37 12/20/24 06:37 Lab Results Blood Type / Crossmatch: No Data to Display Complete Blood Count: No Data to Display Complete Metabolic Panel: No Data to Display Liver Function Panel: No Data to Display Coagulation Panel: No Data to Display Cardiac Panel: No Data to Display Arterial Blood Gas: No Data to Display Venous Blood Gas: No Data to Display Pancreas Panel: No Data to Display Thyroid Panel: No Data to Display Infectious Disease: No Data to Display Blood Cultures: No Data to Display Toxicology Panel: No Data to Display Anesthesia Assessment and Plan Anesthesia History Personal History: No History of Anesthesia Complications Family History: No Family History of Anesthesia Complications Exercise Tolerance Exercise Tolerance: Metabolic Equivalents>4 Pertinent Negatives Pertinent Negatives: No Symptoms of GERD Cardiac & Pulmonary Exam Cardiac Exam: Normal S1/S2 Heart Sounds Pulmonary Exam: Clear Bilateral Breath Sounds Implantable Cardiac Device Does patient have a Pacemaker or an ICD?: No Airway Exam Known Difficult Airway: No Mallampati Class: 2 Mouth Opening: Normal (> 3cm) Thyromental Distance: Greater than 3 cm Neck Range of Motion: Full ROM Neck Circumference: Normal Teeth Condition: Other ASA Classification ASA Score: ASA 2 Emergency Case?: No NPO Status NPO Status: NPO Clears >2 hours, Solids >8 hours Anesthesia Plan Resuscitation Status: Full Code Anesthesia Technique: General Anesthesia Airway Planned: Natural Airway Monitors Used: Standard Monitors
[2024-12-20 07:17] VITALS: BMI 23.8
--- NOTE | 2024-12-20 08:00 | BOWEL_PTH ---
PATIENT: Ana Slater LOC: [facility] U#:[id number] AGE/SX: 59/F ROOM: RE12/20/[address]: John Purcell MD : [id number] BED: DIS: 12/20/2024 SPEC #: [id number] RECD: 12/20/24 12:57 STATUS: ROMULO REQ #: [id number] CHICO: 12/20/24 08:[address]: John Purcell DEPT: Surgical Specimen RECD BY: Martha Aguilar ENTERED: 12/20/24 12:58 SP TYPE: Bowel OTHR DR: Cj Lemos DNP Tissues: 1 - BIOPSY BOWEL Procedures: GROSS AND MICRO LEVEL 4 Comments: [id number]
[2024-12-20 08:06] VITALS: BP 117/89; PULSE 66; RESP 16; TEMP 36.4; O2SAT 99
--- NOTE | 2024-12-20 08:12 | W.ANESPOSTOP ---
Postoperative Evaluation Date, Time and Location Date Performed: 12/20/24 Time Performed: 08:12 Patient Location: Day Surgery Unit Vital Signs Most Recent Imported Vital Signs: Most Recent Vital Signs Temp Pulse Resp BP Pulse Ox 36.3 C L 85 16 110/84 97 12/20/24 06:37 12/20/24 06:37 12/20/24 06:37 12/20/24 06:37 12/20/24 06:37 Pain Score Most Recent Pain Score: Most Recent Pain Score Pain Level 0 12/20/24 06:37 Assessment Mental Status: Awake (Alert & Oriented to Patient Baseline) Airway and Respiratory Function: Patent airway with normal (patient baseline) respiratory exam Cardiovascular Function: Hemodynamically Stable Hydration Status: Adequately Hydrated Nausea & Vomiting: No Nausea or Vomiting Pain: Pt. Denies Any Pain Peripheral Nerve Block: Patient did not receive a nerve block
[2024-12-20 08:37] VITALS: BP 107/75; PULSE 71; RESP 16; TEMP 36.2; O2SAT 99
== END 2024-12-20 08:47 | disposition home or self-care (01) ==
LOC: SUR 06:23
PROVIDERS: PCP Nurse Practitioner Family; Visit Provider Surgery
PROC: 0DJD8ZZ Inspection of Lower Intestinal Tract, Via Natural or Artificial Opening Endoscopic (ICD-10-PCS; CPT 45378; principal; 2024-12-20 07:30)
DX: Z12.11 Encounter for screening for malignant neoplasm of colon (principal); D12.8 Benign neoplasm of rectum
CPT/HCPCS: 45380; 88305; J2003; J2704

== ENCOUNTER 2025-01-11 02:27 | Outpatient (CLI) | payer OTHER, SELFPAY ==
--- NOTE | 2025-01-11 10:12 | DI.MAMMO_ITS ---
Exam(s) MAMMO SCREENING EXAM: MAMMO SCREENING CLINICAL HISTORY: screening, Z12.39. TECHNIQUE: Bilateral full field digital CC and MLO mammographic images were obtained with 3D tomosyn thesis and utilizing computer aided detection (CAD). COMPARISON: Prior mammograms were reviewed. FINDINGS: There has been no significant change in the appearance and distribution of the fibroglandular tissue. Asymmetric density lateral of center on the CC view of the right breast remains stable. There are no new spiculated masses nor new malignant appearing microcalcification groups. There is no significant architectural distortion nor skin thickening-retraction. IMPRESSION: No radiographic evidence of malignancy. BI-RADS Category 2 - Benign Findings Breast Density - Category C - Heterogeneously dense Breast density Category C or D implies that the patient has dense breast tissue. Dense breast tissue can make it harder to find cancer on a mammogram. Dense breast tissue is also associated with an incr eased risk of breast cancer. This information about the result of the mammogram report was provided to the patient to raise their awareness. Use this report when you speak with the patient about their risks for breast cancer, which includes their family history. At that time, you may recommend additional screening tests (Ultrasoun d or MRI) as these tests may add significant information. A negative radiographic report should not delay biopsy if a dominant or clinically suspicious mass is present. Up to ten percent of cancers are not identified on mammography. A negative report may reinforce clinical impression. Adenosis and dense breasts may obscure an underlying neoplasm. False positive reports average 6 to 10%. Patient will receive a letter notifying them of these results.
== END 2025-01-11 02:47 ==
LOC: DI 02:27
PROVIDERS: PCP Nurse Practitioner Family; Visit Provider Nurse Practitioner Family
DX: Z12.31 Encounter for screening mammogram for malignant neoplasm of breast (principal); R92.333 Mammographic heterogeneous density, bilateral breasts; D24.1 Benign neoplasm of right breast
CPT/HCPCS: 77063; 77067